=== PATIENT | female | born 1980 | race Caucasian/White ===

== ENCOUNTER 2017-10-25 04:26 | Emergency (ER) | payer OTHER ==
[~2017-10-25] VITALS: Ht 165.1 cm; Wt 75.0 kg
[~2017-10-25 04:26] MED LIST: LANS30CA60 PO; MULT-26 PO; OMEP20CA9 PO
[2017-10-25 04:39] VITALS: BP 132/84
== END 2017-10-25 05:18 | disposition left against medical advice (07) ==
LOC: ED 04:50
DX: Z53.21 Procedure and treatment not carried out due to patient leaving prior to being seen by health care provider (principal)